=== PATIENT | female | born 1980 | race Caucasian/White ===

== ENCOUNTER 2016-09-02 05:00 | Inpatient (IN) | payer OTHER ==
[~2016-09-02] VITALS: Ht 160 cm; Wt 70.0 kg
[2016-09-02] MEDS ORDERED: MISOPROSTOL 200 MCG TAB PR PRN ×2 (06:30→19:00)
[2016-09-02] MEDS ORDERED: LIDOCAINE 1% (MPF) 30 ML INJ INJ PRN (06:30)
[2016-09-02] MEDS ORDERED: CARBOPROST 250 MCG INJ IM PRN ×2 (06:30→19:00)
[2016-09-02] MEDS ORDERED: OXYTOCIN 30 UNITS/LR 500 ML IV SCH ×3 (06:30→07:30)
[2016-09-02] MEDS ORDERED: OXYTOCIN 30 UNITS/LR 500 ML IV PRN ×2 (06:30→19:00)
[2016-09-02] MEDS ORDERED: METHYLERGONOVINE 0.2 MG INJ IM PRN ×2 (06:30→19:00)
[2016-09-02] MEDS ORDERED: BUTORPHANOL 2 MG INJ IV PRN ×2 (06:30)
[2016-09-02 06:42] LABS: EOSINOPHILS # 0.1 10^3/ul (0.0-0.5); HEMATOCRIT 28.5 % (37.0-47.0); HEMOGLOBIN 9.3 g/dl (12.0-16.0); INR 0.92; LYMPHOCYTES # 2.4 10^3/ul (0.8-2.9); LYMPHOCYTES % 20.9 % (15.0-51.0); MEAN CORPUSCULAR HEMOGLOBIN 23.3 pg (29.0-33.0); MEAN CORPUSCULAR HGB CONC 32.5 g/dl (32.0-37.0); MEAN CORPUSCULAR VOLUME 71.6 fl (82.0-101.0); MEAN PLATELET VOLUME 9.5 fl (7.4-10.4); MONOCYTE # 0.6 10^3/ul (0.3-0.9); MONOCYTES % 5.3 % (0.0-11.0); NEUTROPHIL # 8.4 10^3/ul (1.6-7.5); NEUTROPHILS % 72.8 % (39.0-77.0); PLATELET COUNT 295 10^3/UL (140-440); PROTIME 12.4 Sec (12.2-14.2); RED BLOOD COUNT 3.97 10^6/ul (4.20-5.40); RED CELL DISTRIBUTION WIDTH 16.2 % (11.5-14.5); UNCORRECTED WBC 11.5 10^3/ul (4.8-10.8); WHITE BLOOD COUNT 11.5 10^3/ul (4.8-10.8)
[2016-09-02 06:43] LABS: PARTIAL THROMBOPLASTIN TIME 24.4 Sec (25.0-35.0)
[2016-09-02 06:48] LABS: CONDITION 1; LH ANALYZER COMMENTS 1
[2016-09-02 06:50] VITALS: BP 108/67; PULSE 94; RESP 18
[2016-09-02] MEDS ORDERED: LACTATED RINGER'S 1,000 ML IV PRN (07:00)
[2016-09-02] MEDS: LACTATED RINGER'S 1,000 ML IV SCH ×2 (07:21→10:12)
[2016-09-02] MEDS ORDERED: FENTAnyl 2MCG/ML-ROPIV 0.2% 100 ML ONE (12:22)
--- NOTE | 2016-09-02 13:50 | HP ---
Date/Time of Note Date/Time of Note DATE: 09/02/16 TIME: 13:46 OB - History Hx of Present Chief Complaint: Admitted for induction due to oligohydramnios. 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 Blood Type: O+ Rubella: immune RPR/VDRL: Negative GBS Status: Negative HBsAG: Negative OB Admission Exam Vital Signs Vital Signs Vital Signs Date Time Temp Pulse Resp B/P Pulse Ox O2 Delivery O2 Flow Rate FiO2 09/02/16 06:50 98.8 94 18 108/67 Room Air Last 72 hours Lab Results CBC & BMP 09/02/16 06:09 DADA CABELLO MD Sep 02, 2016 13:50
[2016-09-02] MEDS ORDERED: NALOXONE (0.4 MG/ML) INJ IV PRN (15:00)
[2016-09-02] MEDS ORDERED: FENTAnyl 2MCG/ML-ROPIV 0.2% 100 ML BAG EPI SCH (15:00)
[2016-09-02] MEDS ORDERED: MINERAL OIL LIGHT 10 ML VIAL TOP ONE (15:30)
--- NOTE | 2016-09-02 17:05 | LDN ---
Date/Time of Note Date/Time of Note DATE: 09/02/16 TIME: 17:04 Delivery Summary Normmal vaginal delivery baby girl. Placenta Delivered: Spontaneously Meconium: none Perineum intact?: Yes Anesthesia type: Epidural Estimated blood loss: 200 Sponge & Needle done & correct: Yes All needle counts correct: Yes Any foreign bodies felt in the: No Problems: DADA CABELLO MD Sep 02, 2016 17:05
[2016-09-02 18:30] VITALS: BP 101/62; PULSE 75; RESP 16
[2016-09-02] MEDS ORDERED: ACETAMINOPHEN/CODEINE #3 TAB PO PRN ×2 (19:00)
[2016-09-02] MEDS ORDERED: BENZOCAINE 20% 56 ML SPRAY TOP PRN (19:00)
[2016-09-02] MEDS ORDERED: DIPHENHYDRAMINE 25 MG CAP PO PRN (19:00)
[2016-09-02] MEDS ORDERED: WITCH HAZEL/GLYCERIN PAD PR PRN (19:00)
[2016-09-02] MEDS ORDERED: NA PHOSPHATE/BIPHOS 133 ML ENEMA PR PRN (19:00)
[2016-09-02] MEDS ORDERED: ACETAMINOPHEN 325 MG TAB PO PRN ×2 (19:00)
[2016-09-02] MEDS ORDERED: ZOLPIDEM 5 MG TAB PO PRN (19:00)
[2016-09-02] MEDS ORDERED: DIBUCAINE 1% 30 GM OINT PR PRN (19:00)
[2016-09-02] MEDS ORDERED: ONDANSETRON 4 MG TAB PO PRN (19:00)
[2016-09-02] MEDS ORDERED: ONDANSETRON 4 MG INJ IV PRN (19:00)
[2016-09-02 19:40] VITALS: BP 106/56; PULSE 93; RESP 18
[2016-09-02] MEDS: OXYTOCIN 30 UNITS/LR 500 ML IV SCH (21:19)
[2016-09-02] MEDS: MAGNESIUM HYDROXIDE 30ML CUP PO SCH (21:20)
[2016-09-02] MEDS: IBUPROFEN 800 MG TAB PO SCH (23:48)
[2016-09-03 04:15] VITALS: BP 95/51; PULSE 104; RESP 18
[2016-09-03] MEDS: IBUPROFEN 800 MG TAB PO SCH ×3 (05:39→18:02)
[2016-09-03 07:50] VITALS: BP 107/57; PULSE 86; RESP 18
[2016-09-03] MEDS: MAGNESIUM HYDROXIDE 30ML CUP PO SCH ×2 (08:36→21:31)
[2016-09-03] MEDS: OXYTOCIN 30 UNITS/LR 500 ML IV SCH (08:37)
[2016-09-03 08:41] LABS: BASOPHILS % 0.3 % (0.0-2.0); EOSINOPHILS # 0.2 10^3/ul (0.0-0.5); EOSINOPHILS % 1.4 % (0.0-7.0); HEMATOCRIT 25.3 % (37.0-47.0); HEMOGLOBIN 8.1 g/dl (12.0-16.0); LYMPHOCYTES # 2.6 10^3/ul (0.8-2.9); LYMPHOCYTES % 19.9 % (15.0-51.0); MEAN CORPUSCULAR HEMOGLOBIN 23.3 pg (29.0-33.0); MEAN CORPUSCULAR HGB CONC 32.2 g/dl (32.0-37.0); MEAN CORPUSCULAR VOLUME 72.5 fl (82.0-101.0); MEAN PLATELET VOLUME 9.6 fl (7.4-10.4); MONOCYTE # 0.9 10^3/ul (0.3-0.9); MONOCYTES % 6.9 % (0.0-11.0); NEUTROPHIL # 9.2 10^3/ul (1.6-7.5); NEUTROPHILS % 71.5 % (39.0-77.0); PLATELET COUNT 263 10^3/UL (140-440); RED BLOOD COUNT 3.49 10^6/ul (4.20-5.40); RED CELL DISTRIBUTION WIDTH 16.2 % (11.5-14.5); UNCORRECTED WBC 12.9 10^3/ul (4.8-10.8); WHITE BLOOD COUNT 12.9 10^3/ul (4.8-10.8)
[2016-09-03 08:59] LABS: CONDITION 1; LH ANALYZER COMMENTS 1
--- NOTE | 2016-09-03 11:13 | PN ---
Date/Time of Note Date/Time of Note DATE: 09/03/16 TIME: 11:10 OB Subjective Subjective Subjective no secific complaints except after pain OB Objective Objective Objective vss afebrile fundus firm lochia min calf no tenderness ext sl edema OB Assessment/Plan Other Assessment: stable post vaginal delivery Other plan: d/s home in am UMANG COLLINS MD Sep 03, 2016 11:13
[2016-09-03 11:19] VITALS: BP 118/60; PULSE 93; RESP 20
[2016-09-03 15:41] VITALS: BP 118/60; PULSE 86; RESP 19
[2016-09-03 19:45] VITALS: BP 107/63; PULSE 67; RESP 20
[2016-09-03] MEDS: FERROUS GLUCONATE (EC) 325 MG TAB PO SCH (21:31)
[2016-09-04] MEDS: IBUPROFEN 800 MG TAB PO SCH ×3 (01:33→13:24)
[2016-09-04 04:00] VITALS: BP 103/47; RESP 18
[2016-09-04 08:00] VITALS: BP 113/57; PULSE 95; RESP 18
[2016-09-04] MEDS ORDERED: DIPHTH/TET/ACEL PERTUSS (ADULT) 0.5 ML VIAL IM* ONE (09:00)
[2016-09-04] MEDS ORDERED: MEASLES,MUMPS,RUBELLA VACCINE INJ SC* ONE (09:00)
[2016-09-04] MEDS: FERROUS GLUCONATE (EC) 325 MG TAB PO SCH (09:56)
[2016-09-04] MEDS: MAGNESIUM HYDROXIDE 30ML CUP PO SCH (09:56)
--- NOTE | 2016-09-04 12:00 | PD.PPDC ---
[employer] Discharge Instruction Diagnosis Final Diagnosis: s/p normal delivery Condition Patient Condition: Stable Diet Diet: Resume Regular Diet Activity/Restrictions Activity: May Shower Restrictions: No Lifting No Sexual Activity Nothing in the Vagina No [place] No Tampons, douche Follow-up Follow-up with Physician: 2 Return to clinic for [facility] Instructions: Fever greater than 101 Chills Worsening abdominal pain Excessive Vaginal Bleeding More than 2 pads per hour Unable to tolerate diet OB Instructions: Breast Tenderness Depression Blurried Vision Headache Surgical Instructions: Incisional Drainage Incisional Redness UMANG COLLINS MD Sep 04, 2016 12:00
--- NOTE | 2016-09-04 12:04 | DS ---
Date/Time of Note Date/Time of Note DATE: 09/04/16 TIME: 12:02 Obstetrical Discharge Record Final Diagnosis Final Diagnosis: Term delivered Vaginal Delivery Obstetrical Delivery: Spontaneous Complications Other (oligohydramnios) Augmentation: Yes Induction: Yes Rupture of Membranes: No Condition on Discharge Physical Assessment Last Vitals: vss afebrile Voiding: Yes Bowel Movement: Yes Breast: Soft, non-tender Fundus: Firm Calf Tenderness: No Patient Condition: Stable UMANG COLLINS MD Sep 04, 2016 12:04
== END 2016-09-04 18:09 | disposition home or self-care (01) | DRG 775 ==
LOC: L-D 05:10 → PP1 18:46
PROVIDERS: ADMIT Specialist; ATTEND Specialist
PROC: 10E0XZZ Delivery of Products of Conception, External Approach (ICD-10-PCS; principal; 2016-09-02 05:00)
DX: O41.03X0 Oligohydramnios, third trimester, not applicable or unspecified (principal); O35.8XX0 Maternal care for other (suspected) fetal abnormality and damage, not applicable or unspecified; Z37.0 Single live birth; Z3A.00 Weeks of gestation of pregnancy not specified
CPT/HCPCS: 62319; 85025; 85610; 85730; 86592; 86900; 86901; 87340; 90715; 99464; J2210; J2590; J3010; J7120